=== PATIENT | female | born 1945 | race Caucasian/White ===

== ENCOUNTER 2016-09-02 12:19 | Emergency (ER) | payer OTHER ==
[~2016-09-02] VITALS: Ht 160 cm; Wt 74.7 kg
[~2016-09-02 12:19] MED LIST: DITROPAN XL10 MG PO; JANUVIA25 MG PO; LISINOPRIL5 MG PO; METFORMIN HCL1000 MG PO; MONUROL SACHET 33 GM PO; PRAVASTATIN SOD40 MG PO; PROTONIX20 MG PO; RANITIDINE HCL150 MG PO
[2016-09-02] MEDS ORDERED: LIDODERM 5% P1 PATCH TD (14:33)
[2016-09-02] MEDS ORDERED: NAPROXEN500 MG PO (14:33)
[2016-09-02 15:26] VITALS: BP 172/87
== END 2016-09-02 15:27 | disposition home or self-care (01) ==
LOC: EME 12:19
DX: M54.5 Low back pain (principal); M79.662 Pain in left lower leg; E11.9 Type 2 diabetes mellitus without complications; E78.5 Hyperlipidemia, unspecified; K21.9 Gastro-esophageal reflux disease without esophagitis; Z79.84 Long term (current) use of oral hypoglycemic drugs; Z88.1 Allergy status to other antibiotic agents; Z88.0 Allergy status to penicillin; Z88.2 Allergy status to sulfonamides; Z87.891 Personal history of nicotine dependence; Z79.899 Other long term (current) drug therapy
CPT/HCPCS: 93971; 99281; 99284

== ENCOUNTER 2017-01-26 07:42 | Inpatient (IN) | payer OTHER ==
[~2017-01-26] VITALS: Ht 160 cm; Wt 72.9 kg
[~2017-01-26 07:42] MED LIST changes: +FORTAMET1000 M1 PO; +LIDODERM 5% P1 PATCH TD; -METFORMIN HCL1000 MG PO; +NAPROXEN500 MG PO
[2017-01-26 11:05] LABS: ADD MIUA? NO; BILIRUBIN NEGATIVE; BLOOD NEGATIVE; COLOR YELLOW ((YELLOW)); GLUCOSE (STRIP) NEGATIVE; KETONES NEGATIVE; LEUKOCYTES NEGATIVE; NITRITE NEGATIVE; PROTEIN (STRIP) NEGATIVE; SPECIFIC GRAVITY 1.013 (1.000-1.030); UCUL ADDED? NO; UROBILINOGEN 0.2 MG/DL (0.2-1.0)
[2017-01-26 11:06] LABS: EOSINOPHIL (%) 1.1 % (0-5); EOSINOPHIL COUNT 0.1 K/uL (0-0.3); HEMATOCRIT 46.9 % (36.0-46.0); IMMATURE GRANULOCYTE (%) 0.5 % (0.0-0.7); INSTRUMENT ABS NEUTROPHIL CT 4.2 K/uL; LYMPHOCYTE COUNT 1.4 K/uL (1.0-2.8); MCHC 34.8 G/DL (30.0-36.0); MCV 97.9 FL (83-99); MEAN PLAT.VOLUME 10.5 uM^3 (9.5-12.4); MONOCYTE (%) 7.2 % (3-12); MONOCYTE COUNT 0.4 K/uL (0-0.8); NEUTROPHIL (%) 68.3 % (45-76); NEUTROPHIL COUNT 4.2 K/uL (1.8-6.4); PLATELET COUNT 151 K/uL (156-360); RBC DIS.WIDTH-CV 12.7 % (11.8-14.6); RBC DIS.WIDTH-SD 45.3 % (39-53); RED BLOOD COUNT 4.79 M/uL (3.80-5.20); WHITE BLOOD COUNT 6.1 K/uL (4.1-10.2)
[2017-01-26 11:25] LABS: TROP-I INTERPRETATION NEGATIVE; TROPONIN-I < 0.01 ng/mL (0.0-0.30)
[2017-01-26 11:52] LABS: CHLORIDE 104 mEq/L (99-109); POTASSIUM 4.4 mEq/L (3.7-5.4); SODIUM 140 mEq/L (136-147)
[2017-01-26 11:54] LABS: GLUCOSE 114 mg/dL (70-99)
[2017-01-26 11:55] LABS: ANION GAP 10 MEQ/L (2-14)
[2017-01-26 11:56] LABS: TOTAL BILIRUBIN 0.7 mg/dL (0.0-1.0)
[2017-01-26 11:57] LABS: ALKALINE PHOSPHATASE 52 IU/L (3-129)
[2017-01-26 11:58] LABS: GFR ESTIMATE (CALCULATED) > 59 mL/min/
[2017-01-26 11:59] LABS: UREA NITROGEN (BUN) 18 mg/dL (9-23)
[2017-01-26] MEDS ORDERED: PROAIR HFA8.5 GM IH (13:25)
[2017-01-26] MEDS ORDERED: OXYBUTYNIN CHLO10 MG PO (13:25)
[2017-01-26] MEDS ORDERED: REFRESH TEARS15 ML BOTH EYES (13:26)
[2017-01-26] MEDS ORDERED: VITAMIN D31000 UNI2 PO (13:27)
[2017-01-26] MEDS ORDERED: CYANOCOBALAM1000 MCG PO (13:27)
[2017-01-26] MEDS ORDERED: CO Q-10100 MG PO (13:27)
[2017-01-26] MEDS ORDERED: THERACRAN650 MG PO (13:27)
[2017-01-26 13:28] LABS: HDL CHOLESTEROL 38 MG/DL (Desirable>=50); LDL CHOLESTEROL 100 mg/dL (Desirable<100); NON-HDL CHOLESTEROL 147 mg/dL (Desirable<160); SAMPLE HEMOLYSIS CHECK 0; SAMPLE ICTERIC CHECK 0; SAMPLE LIPEMIA CHECK 0; TOTAL CHOLESTEROL 185 mg/dL (Desirable<200); TRIGLYCERIDES 233 MG/DL (Normal: <150)
[2017-01-26] MEDS ORDERED: FISH OIL 1,0001 EAC8 PO (13:28)
[2017-01-26 14:09] LABS: Estimated Average Glucose 143 mg/dL (70-123); HEMOGLOBIN A1c (GLYCOHEMOGLOB) 6.6 % HGB (Below 5.7)
[2017-01-26 18:23] LABS: TROP-I INTERPRETATION NEGATIVE; TROPONIN-I < 0.01 ng/mL (0.0-0.30)
[2017-01-26 19:58] VITALS: BP 143/71
[2017-01-26 20:43] LABS: POINT-OF-CARE METER ID UU14302473
[2017-01-27 00:26] VITALS: BP 119/76
[2017-01-27 01:13] LABS: TROP-I INTERPRETATION NEGATIVE; TROPONIN-I < 0.01 ng/mL (0.0-0.30)
[2017-01-27 03:41] VITALS: BP 115/63
[2017-01-27 07:11] LABS: POINT-OF-CARE METER ID UU14302513
[2017-01-27 07:22] VITALS: BP 157/74
[2017-01-27 11:07] VITALS: BP 145/70
[2017-01-27 12:31] LABS: POINT-OF-CARE METER ID UU14302473
[2017-01-27] MEDS ORDERED: ASPIR 8181 M1 PO (13:02)
[2017-01-27] MEDS ORDERED: ATORVASTATIN CA40 MG PO (13:02)
== END 2017-01-27 15:20 | disposition home health service (06) | DRG 66 ==
LOC: EME 07:42 → EDOF 12:24 → ENRESERV 12:38 → EDOF 15:40 → ENRESERV 15:47 → 5SOUTH 19:37
PROVIDERS: Emergency Medicine; Internal Medicine
DX: I63.9 Cerebral infarction, unspecified (principal); E11.9 Type 2 diabetes mellitus without complications; E78.5 Hyperlipidemia, unspecified; I10 Essential (primary) hypertension; Z79.4 Long term (current) use of insulin; Z68.28 Body mass index [BMI] 28.0-28.9, adult; Z87.891 Personal history of nicotine dependence; Z90.710 Acquired absence of both cervix and uterus; Z83.3 Family history of diabetes mellitus; Z82.49 Family history of ischemic heart disease and other diseases of the circulatory system; Z80.0 Family history of malignant neoplasm of digestive organs
CPT/HCPCS: 70450; 70551; 80053; 80061; 81003; 82948; 83036; 84484; 85025; 93005; 93306; 93880; J1650; J1815; J2060; J2405; J7030